=== PATIENT | male | born 1940 | race Caucasian/White ===

== ENCOUNTER 2016-06-13 17:35 | Emergency (ER) | payer MEDICARE, BC ==
--- NOTE | ~2016-06-13 | ER ---
PATIENT'S NAME: EDUARDO MCNEIL [facility] AGE: 76 Y [address] ROOM: [place] [address] LOCATION: ED ADMIT DATE: 06/13/2016 ER/Outpatient Report DISCHARGE DATE: 06/13/2016 FAMILY PHYSICIAN: Bhupendra Weiner MD ATTENDING PHYSICIAN: Bala Lorenz Time of Arrival: 1736 hours. Time of Evaluation/Exam: 1736 hours. CHIEF COMPLAINT: Bleeding. HISTORY OF PRESENT ILLNESS: The patient has a left upper extremity graft for dialysis per the [facility] staff. The patient had bottom needle pulled from the graft approximately 1-1/2 hours ago and then started having oozing from that area. They tried manual pressure, but it continues to bleed. They did contact Dr. Deal. He let us know that the patient will be coming in. The patient did arrive per EMS on cart, pressure dressing is in place. Bleeding is controlled with that. The patient denies any pain to the area, denies any numbness or tingling of his hand. ALLERGIES: NO KNOWN ALLERGIES. CURRENT MEDICATIONS: On his chart and were reviewed by me. PAST MEDICAL HISTORY: 1. Hypertension. 2. Dyslipidemia. 3. Peripheral vascular disease. 4. Dialysis due to kidney failure. 5. He states that he had a kidney transplant in 2009 and was doing really well until about a year and a half ago and then he had to restart dialysis again. 6. He is currently on Eliquis for his coronary artery disease, atrial fibrillation. SOCIAL HISTORY: Denies use of tobacco, drugs, or alcohol. REVIEW OF SYSTEMS: Negative other than those mentioned in the HPI. PATIENT'S NAME: EDUARDO MCNEIL [facility] AGE: 76 Y [address] ROOM: [place] [address] LOCATION: ED ADMIT DATE: 06/13/2016 ER/Outpatient Report DISCHARGE DATE: 06/13/2016 FAMILY PHYSICIAN: Bhupendra Weiner MD ATTENDING PHYSICIAN: Bala Lorenz PHYSICAL EXAMINATION: VITAL SIGNS: He weighed 95.7 kg. Blood pressure is 162/80, pulse of 93, respirations 22, temperature of 98.5, and O2 saturations are 100% on room air. GENERAL APPEARANCE: He is awake, alert, and oriented x4. SKIN: [place], warm, and dry. RESPIRATIONS: Even and nonlabored. Lung sounds are clear throughout. HEART: Regular rate and rhythm. He has strong radial and ulnar pulses. MUSCULOSKELETAL: Good sensation to his fingers. No drainage on the dressing at this point noted. EMERGENCY DEPARTMENT COURSE: Dr. Deal was contacted regarding the patient. He did come down and see the patient and examined him. He then cleansed the area, anesthetized it, and then put a stitch on that area. The patient tolerated the procedure well. No further bleeding was noted. Dressing was applied, and he will be discharged to home. IMPRESSION: Bleeding from the graft due to being on Eliquis. PLAN: Home, rest. Dialysis center to take this stitch out next Friday. Follow up with Dr. Deal as needed. The patient verbalized understanding. KARLEY TAM APRN FOR DO NIKHIL ARREDONDO/rashi /[id number] d: 06/14/16 0101 t: 06/18/16 1233, OUTPATIENT REPORT
== END 2016-06-13 18:05 | disposition disaster alternative care site (69) ==
LOC: GMED 17:35
DX: T82.838A Hemorrhage due to vascular prosthetic devices, implants and grafts, initial encounter (principal); I10 Essential (primary) hypertension; E78.5 Hyperlipidemia, unspecified; I73.9 Peripheral vascular disease, unspecified; I25.10 Atherosclerotic heart disease of native coronary artery without angina pectoris; I48.91 Unspecified atrial fibrillation; Z79.01 Long term (current) use of anticoagulants; Z99.2 Dependence on renal dialysis; Y84.1 Kidney dialysis as the cause of abnormal reaction of the patient, or of later complication, without mention of misadventure at the time of the procedure

== ENCOUNTER → 2016-06-13 | Outpatient (CLI) | payer MEDICARE, BC ==
[~2016-06-13] MED LIST: ASPIR 8181 MG PO; ATORVASTATIN CA10 MG PO; CENTRUM SILVER1 TAB PO; CPAP INH; DELTASONE1 MG PO; DELTASONE5 MG PO; DOXYCYCLINE100 MG PO; ELIQUIS2.5 MG PO; FISH OIL1000 MG PO; IMDUR30 MG PO; LEVAQUIN250 MG PO; PHOSLO667 MG PO; RENVELA800 MG PO; SOTALOL80 MG PO; VITAMIN D1000 UNIT PO; VITAMIN D35000 UNI1 PO; XALATAN2.5 ML OPHTH; ZYLOPRIM100 MG PO
== END | disposition disaster alternative care site (69) ==
LOC: GAMB 17:20
DX: N99.820 Postprocedural hemorrhage of a genitourinary system organ or structure following a genitourinary system procedure (principal); Z79.82 Long term (current) use of aspirin; Z79.52 Long term (current) use of systemic steroids; Z79.899 Other long term (current) drug therapy
CPT/HCPCS: A0425; A0429